=== PATIENT | female | born 1990 | race African-American/Black ===

== ENCOUNTER 2019-08-28 21:58 | Emergency (ER) | payer SELFPAY ==
[~2019-08-28] VITALS: Ht 165.1 cm; Wt 66.0 kg
[2019-08-28] MEDS ORDERED: SODIUM CHLORIDE 0.9% 1,000 ML IV ONE (22:43)
[2019-08-28] MEDS ORDERED: KETOROLAC 30MG/ML VIAL IV STA (22:43)
[2019-08-28 23:24] LABS: BASOPHILS % 1.3 % (0.0-2.0); EOSINOPHILS % 3.1 % (0.0-5.0); HEMATOCRIT. 38.9 % (36.0-48.0); MEAN CORPUSCULAR HEMOGLOBIN 25.5 pg (28.0-32.0); MEAN CORPUSCULAR VOLUME 76.2 fL (81.0-99.0); MEAN PLATELET VOLUME 9.9 fl (7.4-10.4); MONOCYTES % 8.1 % (2.0-8.0); NEUTROPHILS % 53.5 % (40.0-76.0); PLATELET 255 x1000/uL (130-400); RED CELL DISTRIBUTION WIDTH 17.9 % (11.6-14.6)
[2019-08-28 23:28] LABS: CHLORIDE 110 mEq/L (98-107)
[2019-08-29] MEDS ORDERED: POTASSIUM CHLORIDE 20MEQ TABLET SR PO ONE (01:15)
[2019-08-29 02:23] VITALS: BP 116/81
== END 2019-08-29 02:27 | disposition home or self-care (01) ==
LOC: ER 21:58
DX: R07.89 Other chest pain (principal)
CPT/HCPCS: 36415; 71045; 80053; 81025; 85025; 93005; 96374; 99285; J1885; J7030